=== PATIENT | male | born 1950 | race African-American/Black ===

== ENCOUNTER 2024-01-17 22:38 | Inpatient (IN) | payer MEDICARE, MEDICAID ==
[~2024-01-17] VITALS: Ht 177.8 cm; Wt 76.4 kg
[2024-01-17 22:50] VITALS: BP 138/96; PULSE 133; O2SAT 94
[2024-01-17 23:04] LABS: Basophils # (auto) 0.1 10 ^3/uL (0-0.2); Hemoglobin 12.6 g/dL (13.5-17.5); Neutrophils # (auto) 3.4 10 ^3/uL (1.6-8.6); Red Cell Distribution Width 21.2 % (11.8-14.3); White Blood Cell 6.5 10^3/uL (4.4-10.8)
[2024-01-17 23:06] LABS: Basophils % (auto) 0.9 % (0.0-2.0); Eosinophils # (auto) 0.2 10 ^3/uL (0-0.8); Eosinophils % (auto) 2.4 % (0.0-7.0); Hematocrit 40.1 % (41.0-53.0); Lymphocytes # (auto) 2.1 10 ^3/uL (0.4-5.4); Lymphocytes % (auto) 32.8 % (10.0-50.0); Mean Corpuscular Hemoglobin 23.9 pg (28.0-32.0); Mean Corpuscular Hgb Conc. 31.4 g/dL (32.0-36.0); Mean Corpuscular Volume 76.2 fL (80.0-100.0); Monocytes # (auto) 0.7 10 ^3/uL (0-1.3); Monocytes % (auto) 10.5 % (0.0-12.0); Neutrophils % (auto) 53.4 % (37.0-80.0); Platelet Count (auto) 238 10^3/uL (140-450); Red Blood Cells 5.26 10^6/uL (4.5-5.90)
[2024-01-17] MEDS: MAGNESIUM SULFATE 1GM/100ML 100 ML IV ONE (23:12)
[2024-01-17] MEDS: methylPREDNISolone SOD SUCC 125 MG/2 ML VL IV ONE (23:17)
[2024-01-17] MEDS: FUROSEMIDE 40 MG/4 ML VIAL IV ONE (23:17)
[2024-01-17] MEDS: ALBUTEROL SULF 2.5 MG/0.5ML(0.5%) NEB SOLN NEB ONE ×2 (23:20→23:22)
[2024-01-17] MEDS: IPRATROPIUM BROM 0.5 MG/2.5ML INH SOL NEB ONE (23:22)
[2024-01-17 23:32] LABS: Alanine Aminotransferase 20 U/L (7-40); Alkaline Phosphatase 126 U/L (46-116); Calcium 10.2 mg/dL (8.7-10.4); Carbon Dioxide 30 mmol/L (20-31); Chloride 103 mmol/L (98-107)
[2024-01-17 23:33] LABS: Albumin 4.2 g/dL (3.2-4.8); Anion Gap 7 (5-15); Aspartate Aminotransferase 19 U/L (13-40); BUN/Creatinine Ratio 14.3 (10.0-20.0); Bilirubin, Total 0.5 mg/dL (0.2-1.0); Blood Urea Nitrogen 17 mg/dL (9-23); Glucose 209 mg/dL (74-106); Potassium 3.9 mmol/L (3.5-5.1); Sodium 140 mmol/L (136-145); Total Protein 7.8 g/dL (5.7-8.2)
[2024-01-18] VITALS (8 sets, daily range): BP systolic 115–125; BP diastolic 67–78; PULSE 95–134; RESP 16–24; TEMP 97.4; O2SAT 94–98
[2024-01-18] MEDS: levoFLOXacin 500MG 100 ML IV ONE (00:29)
[2024-01-18] MEDS ORDERED: ONDANSETRON HCL 4 MG/2 ML VIAL IV PRN (06:30)
[2024-01-18] MEDS ORDERED: IPRATROPIUM BROM 0.5 MG/2.5ML INH SOL NEB PRN (06:30)
[2024-01-18] MEDS ORDERED: ALBUTEROL SULF 2.5 MG/0.5ML(0.5%) NEB SOLN NEB PRN (06:30)
[2024-01-18] MEDS ORDERED: DEXTROSE (50%) 50ML SYRG IV PRN (06:30)
[2024-01-18] MEDS ORDERED: NITROGLYCERIN 0.4 MG SL TAB SL PRN (06:30)
[2024-01-18] MEDS: methylPREDNISolone SOD SUCC 40 MG/ML VL IV SCH (06:38)
[2024-01-18] MEDS: ACCU-CHEK COMFORT CURVE STRIP VI SCH (06:45)
[2024-01-18] MEDS: InsuLIN REG 1unit/0.01ml Soln (100units/ml) SC SCH ×2 (06:50→21:38)
[2024-01-18 07:05] LABS: Basophils # (auto) 0 10 ^3/uL (0-0.2); Basophils % (auto) 0.2 % (0.0-2.0); Eosinophils # (auto) 0 10 ^3/uL (0-0.8); Lymphocytes # (auto) 0.4 10 ^3/uL (0.4-5.4); Mean Corpuscular Volume 75.3 fL (80.0-100.0); Monocytes # (auto) 0.1 10 ^3/uL (0-1.3); Monocytes % (auto) 1.9 % (0.0-12.0); Neutrophils # (auto) 3.1 10 ^3/uL (1.6-8.6); Nucleated Red Blood Cells % 0.1 %; White Blood Cell 3.6 10^3/uL (4.4-10.8)
[2024-01-18 07:07] LABS: Hematocrit 35.4 % (41.0-53.0); Hemoglobin 11.2 g/dL (13.5-17.5); Lymphocytes % (auto) 10.9 % (10.0-50.0); Mean Corpuscular Hemoglobin 23.7 pg (28.0-32.0); Mean Corpuscular Hgb Conc. 31.5 g/dL (32.0-36.0); Platelet Count (auto) 189 10^3/uL (140-450); Red Blood Cells 4.71 10^6/uL (4.5-5.90); Red Cell Distribution Width 21.5 % (11.8-14.3)
[2024-01-18 07:26] LABS: Alanine Aminotransferase 19 U/L (7-40); Albumin 3.8 g/dL (3.2-4.8); Alkaline Phosphatase 109 U/L (46-116); Anion Gap 9 (5-15); Aspartate Aminotransferase 15 U/L (13-40); BUN/Creatinine Ratio 16.5 (10.0-20.0); Blood Urea Nitrogen 18 mg/dL (9-23); Calcium 9.8 mg/dL (8.7-10.4); Carbon Dioxide 29 mmol/L (20-31); Chloride 101 mmol/L (98-107); Glucose 161 mg/dL (74-106); Sodium 139 mmol/L (136-145)
[2024-01-18 07:27] LABS: Bilirubin, Total 0.5 mg/dL (0.2-1.0); Total Protein 6.9 g/dL (5.7-8.2)
[2024-01-18] MEDS: ASPirin 81 mg TAB PO SCH (09:44)
[2024-01-18] MEDS: FAMOTIDINE (10MG/ML) 2ML VL IV SCH (09:44)
[2024-01-18] MEDS: FUROSEMIDE 40 MG/4 ML VIAL IV SCH ×2 (09:45→18:30)
[2024-01-18 13:36] LABS: Rapid Influenza A Negative (Negative); Rapid Influenza B Negative (Negative)
[2024-01-18 13:37] LABS: COVID19 ANTIGEN SOFIA FIA NEGATIVE (NEGATIVE)
[2024-01-18] MEDS: SODIUM CHLOR 0.9% PF (SALINE LOCK) 10ML VIAL/SYR IV SCH (14:30)
[2024-01-18 15:03] LABS: % Iron Saturation 10.3 % (20-55)
[2024-01-18 16:15] LABS: Triglycerides 60 mg/dL (< 150)
[2024-01-18 16:16] LABS: LDL Cholesterol 83 mg/dL (< 100)
[2024-01-18 16:17] LABS: Cholesterol 147 mg/dL (< 200); HDL Cholesterol 47 mg/dL (40-59)
[2024-01-18] MEDS: SPIRONOLACTONE 25 MG TAB PO ONE (16:36)
[2024-01-18] MEDS: PANTOPRAZOLE 40 MG TAB PO ONE (16:36)
[2024-01-18] MEDS: IPRATROPIUM BROM 0.5 MG/2.5ML INH SOL NEB SCH (18:00)
[2024-01-18] MEDS ORDERED: PREG50CA PO (18:16)
[2024-01-18] MEDS ORDERED: CYCL-839 PO (18:16)
[2024-01-18] MEDS ORDERED: SPIR25TA8 PO (18:16)
[2024-01-18] MEDS ORDERED: OMEP20TA PO (18:16)
[2024-01-18] MEDS ORDERED: ATOR10TA52 PO (18:16)
[2024-01-18] MEDS ORDERED: VENL1TAB97 PO (18:16)
[2024-01-18] MEDS ORDERED: EMPA1TAB3 PO (18:16)
[2024-01-18] MEDS ORDERED: LISI20TA56 PO (18:16)
[2024-01-18] MEDS: LEVALBUTEROL HCL 1.25 MG/3 ML NEB NEB PRN (19:36)
[2024-01-18] MEDS: levoFLOXacin 500MG 100 ML IV SCH (21:24)
[2024-01-18] MEDS: DOCUSATE SOD 100 MG CAP PO PRN (21:41)
[2024-01-19] VITALS (12 sets, daily range): BP systolic 101–134; BP diastolic 69–80; PULSE 90–102; RESP 16–20; TEMP 96.7–98; O2SAT 95–100
[2024-01-19] MEDS: PANTOPRAZOLE 40 MG TAB PO SCH (06:00)
[2024-01-19 06:07] LABS: Basophils # (auto) 0 10 ^3/uL (0-0.2); Basophils % (auto) 0.1 % (0.0-2.0); Eosinophils # (auto) 0 10 ^3/uL (0-0.8); Hematocrit 36.5 % (41.0-53.0); Hemoglobin 11.5 g/dL (13.5-17.5); Lymphocytes # (auto) 0.6 10 ^3/uL (0.4-5.4); Mean Corpuscular Hemoglobin 23.8 pg (28.0-32.0); Mean Corpuscular Hgb Conc. 31.5 g/dL (32.0-36.0); Mean Corpuscular Volume 75.6 fL (80.0-100.0); Monocytes # (auto) 0.5 10 ^3/uL (0-1.3); Monocytes % (auto) 6.9 % (0.0-12.0); Neutrophils # (auto) 6.4 10 ^3/uL (1.6-8.6); Nucleated Red Blood Cells % 0.1 %; Platelet Count (auto) 209 10^3/uL (140-450); Red Blood Cells 4.82 10^6/uL (4.5-5.90); Red Cell Distribution Width 21.2 % (11.8-14.3); White Blood Cell 7.5 10^3/uL (4.4-10.8)
[2024-01-19 06:19] LABS: Alanine Aminotransferase 17 U/L (7-40); Albumin 4.1 g/dL (3.2-4.8); Alkaline Phosphatase 101 U/L (46-116); Anion Gap 8 (5-15); Aspartate Aminotransferase 15 U/L (13-40); BUN/Creatinine Ratio 22.4 (10.0-20.0); Calcium 10.2 mg/dL (8.7-10.4); Carbon Dioxide 30 mmol/L (20-31); Chloride 100 mmol/L (98-107); Glucose 132 mg/dL (74-106); Sodium 138 mmol/L (136-145)
[2024-01-19 06:20] LABS: Bilirubin, Total 0.4 mg/dL (0.2-1.0)
[2024-01-19 06:26] LABS: Blood Urea Nitrogen 30 mg/dL (9-23)
[2024-01-19] MEDS: FUROSEMIDE 40 MG/4 ML VIAL IV SCH (11:14)
[2024-01-19] MEDS: SPIRONOLACTONE 25 MG TAB PO SCH (11:14)
[2024-01-19] MEDS: EMPAGLIFLOZIN 10 MG TAB PO SCH (11:14)
[2024-01-19] MEDS: MORPHINE SULFATE INJ 2 MG/ml SYRG IV PRN (17:03)
[2024-01-19] MEDS: methylPREDNISolone SOD SUCC 40 MG/ML VL IV SCH (21:44)
[2024-01-19] MEDS: FUROSEMIDE INJECTION 100 MG in SODIUM CHL 0.9% 100 ML IV SCH (22:08)
[2024-01-19] MEDS: SALINE 0.65 % NASAL SPRAY 45ML BOTTLE EACHNOSTRI SCH (22:12)
[2024-01-20] VITALS (13 sets, daily range): BP systolic 102–125; BP diastolic 59–77; PULSE 71–97; RESP 18–20; TEMP 97.4–98.1; O2SAT 94–100
[2024-01-20 04:37] LABS: Basophils # (auto) 0 10 ^3/uL (0-0.2); Eosinophils # (auto) 0 10 ^3/uL (0-0.8); Hemoglobin 11.5 g/dL (13.5-17.5); Lymphocytes # (auto) 0.7 10 ^3/uL (0.4-5.4); Mean Corpuscular Hgb Conc. 31.8 g/dL (32.0-36.0); Monocytes # (auto) 0.5 10 ^3/uL (0-1.3); Nucleated Red Blood Cells % 0.1 %; White Blood Cell 8.3 10^3/uL (4.4-10.8)
[2024-01-20 04:38] LABS: Basophils % (auto) 0.4 % (0.0-2.0); Hematocrit 36.1 % (41.0-53.0); Mean Corpuscular Hemoglobin 23.8 pg (28.0-32.0); Mean Corpuscular Volume 74.6 fL (80.0-100.0); Monocytes % (auto) 5.7 % (0.0-12.0); Neutrophils % (auto) 84.9 % (37.0-80.0); Platelet Count (auto) 208 10^3/uL (140-450); Red Blood Cells 4.84 10^6/uL (4.5-5.90)
[2024-01-20 04:41] LABS: Red Cell Distribution Width 20.9 % (11.8-14.3)
[2024-01-20 04:55] LABS: Alanine Aminotransferase 24 U/L (7-40); Albumin 3.9 g/dL (3.2-4.8); Alkaline Phosphatase 97 U/L (46-116); Anion Gap 7 (5-15); Aspartate Aminotransferase 18 U/L (13-40); BUN/Creatinine Ratio 31.2 (10.0-20.0); Carbon Dioxide 32 mmol/L (20-31); Chloride 98 mmol/L (98-107); Glucose 134 mg/dL (74-106); Sodium 137 mmol/L (136-145)
[2024-01-20 04:56] LABS: Bilirubin, Total 0.4 mg/dL (0.2-1.0); Total Protein 6.9 g/dL (5.7-8.2)
[2024-01-20 04:57] LABS: Blood Urea Nitrogen 43 mg/dL (9-23)
[2024-01-20 05:10] LABS: Hypochromia Moderate
[2024-01-20 05:11] LABS: Anisocytosis Slight
[2024-01-20 05:12] LABS: Large Platelets FEW; Ovalocytes FEW; Platelet Estimate Adequa
[2024-01-20 09:34] LABS: INR 1.15 (0.9-1.15); Partial Thromboplastin Time 26.4 SEC (24.5-34.5); Prothrombin Time 12.1 sec (9.3-11.8)
[2024-01-20 09:49] LABS: Alanine Aminotransferase 24 U/L (7-40); Albumin 4.1 g/dL (3.2-4.8); Alkaline Phosphatase 103 U/L (46-116); Anion Gap 8 (5-15); Aspartate Aminotransferase 21 U/L (13-40); BUN/Creatinine Ratio 30.1 (10.0-20.0); Bilirubin, Total 0.5 mg/dL (0.2-1.0); Blood Urea Nitrogen 41 mg/dL (9-23); Calcium 10.3 mg/dL (8.7-10.4); Carbon Dioxide 32 mmol/L (20-31); Chloride 97 mmol/L (98-107); Glucose 126 mg/dL (74-106); Potassium 3.8 mmol/L (3.5-5.1); Sodium 137 mmol/L (136-145); Total Protein 7.3 g/dL (5.7-8.2)
[2024-01-20 14:38] LABS: Magnesium 2.1 mg/dL (1.6-2.6)
[2024-01-20 14:39] LABS: Phosphorus 4.7 mg/dL (2.4-5.1)
[2024-01-20] MEDS: POTASSIUM EFFERVESENT TAB 25 MEQ PO ONE (16:36)
[2024-01-20] MEDS: DOPamine 1600MCG/ML D5W 250 ML IV SCH (16:40)
[2024-01-20] MEDS: BUMETANIDE INJECTION 12.5 MG in GIVE UN-DILUTED 0 ML IV SCH (16:42)
[2024-01-20 17:34] LABS: Urine Bacteria None Seen /hpf (None Seen)
[2024-01-20 17:51] LABS: Sodium Urine 97 mmol/L (40-220)
[2024-01-20 17:55] LABS: Protein, Urine < 6.0 mg/dL (1-14)
[2024-01-20 17:58] LABS: Creatinine, Urine 34.31 mg/dL (30.0-125.0); Urine Protein/Creatinine Ratio 0.17
[2024-01-20 18:15] LABS: Urine Blood Negative /uL (Negative); Urine Clarity Clear (Clear); Urine Color Light-Yellow (Yellow); Urine Hyaline Cast FEW /lpf (0 - 2); Urine Protein, UAD Negative (Negative); Urine Urobilinogen Normal (Negative); Urine WBC 2 /hpf (0 - 3)
[2024-01-20] MEDS: DOCUSATE SOD 100 MG CAP PO ONE (18:27)
[2024-01-20] MEDS: ATORVASTATIN 20 MG TAB PO SCH (22:11)
[2024-01-20] MEDS: LACTULOSE 20Gm/30ML SOLN PO ONE (22:18)
[2024-01-21] VITALS (15 sets, daily range): BP systolic 96–120; BP diastolic 48–65; PULSE 82–97; RESP 16–20; TEMP 96.5–97.9; O2SAT 94–100
[2024-01-21] MEDS: IODIXANOL 320MG/ML 100ML BTL IV ONE (08:41)
[2024-01-21] MEDS: HEPARIN IN NS 1000Units/500mL 1,500 ML ONE (08:41)
[2024-01-21 09:22] LABS: Alanine Aminotransferase 142 U/L (7-40); Alkaline Phosphatase 102 U/L (46-116); Anion Gap 8 (5-15); Aspartate Aminotransferase 87 U/L (13-40); BUN/Creatinine Ratio 30.7 (10.0-20.0); Bilirubin, Total 0.6 mg/dL (0.2-1.0); Blood Urea Nitrogen 46 mg/dL (9-23); Calcium 9.9 mg/dL (8.7-10.4); Carbon Dioxide 32 mmol/L (20-31); Chloride 94 mmol/L (98-107); Potassium 4.3 mmol/L (3.5-5.1); Sodium 134 mmol/L (136-145); Total Protein 7.1 g/dL (5.7-8.2)
[2024-01-21 09:29] LABS: Glucose 249 mg/dL (74-106)
[2024-01-21] MEDS: HYDROcodone-ACET 5/325MG TAB PO PRN (17:37)
[2024-01-22] VITALS (15 sets, daily range): BP systolic 100–127; BP diastolic 54–84; PULSE 46–122; RESP 16–19; TEMP 97.5–98.6; O2SAT 94–99
[2024-01-22] MEDS: methylPREDNISolone SOD SUCC 40 MG/ML VL IV SCH (09:49)
[2024-01-23] VITALS (15 sets, daily range): BP systolic 113–149; BP diastolic 51–79; PULSE 18–102; RESP 18–20; TEMP 97.8–98.4; O2SAT 94–99
[2024-01-23] MEDS: fentaNYL CITRATE 100 MCG/2 ML VL ONE (14:08)
[2024-01-23] MEDS: LIDOCAINE 2%HCL (LOCAL ANESTH.) INJ 10ml MDV ONE (14:13)
[2024-01-23] MEDS: IOHEXOL 300 MG/ML 100ML BOTTLE IJ ONE (14:24)
[2024-01-23] MEDS: GELATIN 1 SPONGE SIZE 50 TOP ONE (14:43)
[2024-01-24] VITALS (17 sets, daily range): BP systolic 115–120; BP diastolic 68–76; PULSE 50–99; RESP 17–20; TEMP 97.6–98.2; O2SAT 94–98
[2024-01-25] VITALS (15 sets, daily range): BP systolic 109–126; BP diastolic 61–73; PULSE 64–94; RESP 18–20; TEMP 97.3–98.1; O2SAT 85–100
[2024-01-25 07:14] LABS: Chloride 97 mmol/L (98-107); Potassium 4.4 mmol/L (3.5-5.1); Sodium 135 mmol/L (136-145)
[2024-01-25 07:15] LABS: Anion Gap 6 (5-15); Calcium 9.8 mg/dL (8.7-10.4); Carbon Dioxide 32 mmol/L (20-31)
[2024-01-25 07:20] LABS: BUN/Creatinine Ratio 36.9 (10.0-20.0); Blood Urea Nitrogen 58 mg/dL (9-23)
[2024-01-25 07:21] LABS: Glucose 114 mg/dL (74-106)
[2024-01-26] VITALS (17 sets, daily range): BP systolic 104–121; BP diastolic 54–70; PULSE 62–93; RESP 16–20; TEMP 97.5–98.3; O2SAT 93–100
[2024-01-26] MEDS: BUMETANIDE 2.5mg/10ml (0.25 mg/ml) INJ IV SCH (15:15)
[2024-01-27] VITALS (16 sets, daily range): BP systolic 104–133; BP diastolic 64–72; PULSE 46–92; RESP 16–18; TEMP 97.3–98.2; O2SAT 95–99
[2024-01-27 10:27] LABS: Basophils # (auto) 0 10 ^3/uL (0-0.2); Basophils % (auto) 0.3 % (0.0-2.0); Eosinophils # (auto) 0.3 10 ^3/uL (0-0.8); Monocytes # (auto) 0.9 10 ^3/uL (0-1.3)
[2024-01-27 10:29] LABS: Eosinophils % (auto) 3.9 % (0.0-7.0); Hematocrit 39.3 % (41.0-53.0); Hemoglobin 12.5 g/dL (13.5-17.5); Lymphocytes # (auto) 1.9 10 ^3/uL (0.4-5.4); Lymphocytes % (auto) 25.9 % (10.0-50.0); Mean Corpuscular Hemoglobin 23.7 pg (28.0-32.0); Mean Corpuscular Hgb Conc. 31.7 g/dL (32.0-36.0); Mean Corpuscular Volume 74.8 fL (80.0-100.0); Monocytes % (auto) 12.4 % (0.0-12.0); Neutrophils # (auto) 4.2 10 ^3/uL (1.6-8.6); Neutrophils % (auto) 57.5 % (37.0-80.0); Nucleated Red Blood Cells % 0.1 %; Platelet Count (auto) 204 10^3/uL (140-450); Red Blood Cells 5.26 10^6/uL (4.5-5.90); White Blood Cell 7.3 10^3/uL (4.4-10.8)
[2024-01-27 10:41] LABS: Alanine Aminotransferase 43 U/L (7-40); Albumin 3.8 g/dL (3.2-4.8); Alkaline Phosphatase 90 U/L (46-116); Anion Gap 6 (5-15); Aspartate Aminotransferase 18 U/L (13-40); BUN/Creatinine Ratio 34.8 (10.0-20.0); Bilirubin, Total 0.7 mg/dL (0.2-1.0); Blood Urea Nitrogen 47 mg/dL (9-23); Calcium 9.9 mg/dL (8.7-10.4); Carbon Dioxide 29 mmol/L (20-31); Chloride 98 mmol/L (98-107); Glucose 162 mg/dL (74-106); Potassium 3.9 mmol/L (3.5-5.1); Sodium 133 mmol/L (136-145); Total Protein 6.6 g/dL (5.7-8.2)
[2024-01-27 10:56] LABS: Red Cell Distribution Width 21.7 % (11.8-14.3)
[2024-01-27] MEDS: METOPROLOL TARTRATE 25 MG TAB PO SCH (21:46)
[2024-01-27] MEDS: ACETAMINOPHEN 325 MG TAB PO PRN (23:56)
[2024-01-28] VITALS (16 sets, daily range): BP systolic 93–110; BP diastolic 55–65; PULSE 42–78; RESP 16–20; TEMP 97.6–98.7; O2SAT 94–99
[2024-01-28 09:47] LABS: Anion Gap 7 (5-15); Carbon Dioxide 28 mmol/L (20-31); Chloride 99 mmol/L (98-107); Potassium 4.3 mmol/L (3.5-5.1); Sodium 134 mmol/L (136-145)
[2024-01-28 09:48] LABS: Calcium 9.7 mg/dL (8.7-10.4)
[2024-01-28 09:52] LABS: Glucose 206 mg/dL (74-106)
[2024-01-28 09:53] LABS: BUN/Creatinine Ratio 35.4 (10.0-20.0); Blood Urea Nitrogen 52 mg/dL (9-23); Magnesium 2.3 mg/dL (1.6-2.6)
[2024-01-28] MEDS: EMPAGLIFLOZIN 10 MG TAB PO SCH (10:30)
[2024-01-28] MEDS ORDERED: MET25T PO (15:32)
[2024-01-28] MEDS ORDERED: ATOR20TA50 PO (15:32)
[2024-01-28] MEDS ORDERED: ASPI-325 PO (15:32)
[2024-01-29 01:00] VITALS: BP 106/65; PULSE 75; RESP 18; TEMP 97.4; O2SAT 98
[2024-01-29 05:00] VITALS: BP 103/73; PULSE 79; RESP 18; TEMP 98; O2SAT 99
[2024-01-29 06:56] VITALS: PULSE 42; RESP 20; O2SAT 97
[2024-01-29 07:02] VITALS: PULSE 75; RESP 16; O2SAT 100
[2024-01-29 09:00] VITALS: BP 109/64; PULSE 74; RESP 18; TEMP 98; O2SAT 96
== END 2024-01-29 07:32 | disposition home or self-care (01) | DRG 177 ==
LOC: ER 22:38 → EDBD 22:38 → TELE 01-18 06:26 → TELE-WESTW 01-18 17:48
PROVIDERS: ADMIT Nurse Practitioner Family; ATTEND Student in an Organized Health Care Education/Training Program
PROC: 5A09357 Assistance with Respiratory Ventilation, Less than 24 Consecutive Hours, Continuous Positive Airway Pressure (ICD-10-PCS; principal; 2024-01-17)
PROC: 0WBH3ZX Excision of Retroperitoneum, Percutaneous Approach, Diagnostic (ICD-10-PCS; 2024-01-23)
PROC: 0TB13ZX Excision of Left Kidney, Percutaneous Approach, Diagnostic (ICD-10-PCS; 2024-01-25)
DX: J15.69 Pneumonia due to other Gram-negative bacteria (principal); I50.23 Acute on chronic systolic (congestive) heart failure; J96.21 Acute and chronic respiratory failure with hypoxia; J96.22 Acute and chronic respiratory failure with hypercapnia; J44.0 Chronic obstructive pulmonary disease with (acute) lower respiratory infection; J44.1 Chronic obstructive pulmonary disease with (acute) exacerbation; N17.9 Acute kidney failure, unspecified; N39.0 Urinary tract infection, site not specified; I42.0 Dilated cardiomyopathy; C77.2 Secondary and unspecified malignant neoplasm of intra-abdominal lymph nodes; I13.0 Hypertensive heart and chronic kidney disease with heart failure and stage 1 through stage 4 chronic kidney disease, or unspecified chronic kidney disease; C64.2 Malignant neoplasm of left kidney, except renal pelvis; Z20.822 Contact with and (suspected) exposure to COVID-19; D50.9 Iron deficiency anemia, unspecified; D63.1 Anemia in chronic kidney disease; E11.65 Type 2 diabetes mellitus with hyperglycemia; E11.22 Type 2 diabetes mellitus with diabetic chronic kidney disease; I16.0 Hypertensive urgency; F32.9 Major depressive disorder, single episode, unspecified; I50.82 Biventricular heart failure; I08.0 Rheumatic disorders of both mitral and aortic valves; N18.31 Chronic kidney disease, stage 3a; Z88.0 Allergy status to penicillin; Z99.81 Dependence on supplemental oxygen; Z80.1 Family history of malignant neoplasm of trachea, bronchus and lung; Z82.49 Family history of ischemic heart disease and other diseases of the circulatory system; Z80.0 Family history of malignant neoplasm of digestive organs; Z87.891 Personal history of nicotine dependence; Z79.899 Other long term (current) drug therapy; Z79.84 Long term (current) use of oral hypoglycemic drugs
CPT/HCPCS: 10005; 36415; 36600; 71045; 74160; 74176; 76775; 77012; 78582; 80048; 80053; 80061; 81001; 82270; 82306; 82570; 82805; 82962; 83036; 83540; 83550; 83605; 83735; 83880; 83970; 84100; 84156; 84300; 84484; 85025; 85379; 85610; 85730; 87040; 87426; 87804; 93005; 93306; 93970; 94640; 94660; 96365; 96367; 96375; 99291; G0378; J1815; J1956; J2003; J3490; Q9967